=== PATIENT | male | born 1965 | race Caucasian/White ===

== ENCOUNTER → 2017-12-27 | Outpatient (REF) ==
[~2017-12-27] MED LIST: HUMALOG100 U/ML SC; LANTUS100 U/ML; LORTAB 5/500 501 TAB PO
== END ==
LOC: ZLAB.WCH 08:32
DX: Z01.89 Encounter for other specified special examinations (principal)

== ENCOUNTER → 2018-03-28 | Outpatient (REF) | LOC: ZLAB.WCH 09:48 | DX: Z01.89 Encounter for other specified special examinations (principal) ==

== ENCOUNTER → 2018-04-21 | Outpatient (REF) | LOC: ZLAB.WCH 18:17 | DX: Z01.89 Encounter for other specified special examinations (principal) ==

== ENCOUNTER → 2018-06-01 | Emergency (ER) | payer BC ==
[~2018-06-01] VITALS: Ht 182.9 cm; Wt 88.6 kg
[~2018-06-01] MED LIST changes: +DAPSONE 25MG TA25 MG PO; -LANTUS100 U/ML; +LANTUS100 U/ML SQ; +NOVLOG SQ
[2018-06-01 16:15] VITALS: TEMP 98.6
[2018-06-01 17:36] VITALS: BP 127/77; PULSE 65
== END ==
LOC: COL.ER 16:10
DX: S01.81XA Laceration without foreign body of other part of head, initial encounter (principal); E10.9 Type 1 diabetes mellitus without complications; Z79.4 Long term (current) use of insulin; Z23 Encounter for immunization; W19.XXXA Unspecified fall, initial encounter

== ENCOUNTER 2018-06-06 07:45 | Emergency (ER) | payer BC ==
[2018-06-06 07:48] VITALS: BP 145/75; PULSE 66; TEMP 98
== END 2018-06-06 07:56 | disposition home or self-care (01) ==
LOC: COL.ER 07:45
DX: S01.111D Laceration without foreign body of right eyelid and periocular area, subsequent encounter (principal); X58.XXXD Exposure to other specified factors, subsequent encounter